=== PATIENT | male | born 1995 | race African-American/Black ===

== ENCOUNTER 2017-06-04 09:43 | Emergency (ER) | payer MEDICAID ==
[~2017-06-04] VITALS: Ht 188 cm; Wt 63.5 kg
--- NOTE | 2017-06-04 09:56 | Emergency Room Report ---
History of Present Illness General Chief Complaint: Upper Extremity Injury Source: Patient Present Illness HPI Patient is a 21-year-old male presented after increased pain to his left index finger. Patient injury proximal to 2 days ago. He had been noted to have increased pain to her left index finger. The patient is right-hand dominant. He reports having had index finger being injured while try to catch a football. He reports having the finger dislocated which was relocated by a family member. He denies other locations of pain. Allergies: Coded Allergies: No Known Allergies (Unverified , 06/04/17) Patient History Past Medical History: see triage record Reviewed Nursing Documentation: PMH: Agreed, PSxH: Agreed Nursing Documentation-PMH Past Medical History: No Stated History Review of Systems All Other Systems: negative except mentioned in HPI Physical Exam Vital Signs Date Time Temp Pulse Resp B/P Pulse Ox O2 Delivery O2 Flow Rate FiO2 06/04/17 09:46 98.4 59 18 120/80 99 Room Air General Appearance: well appearing, no apparent distress, alert, GCS 15 Head: normocephalic, atraumatic ENT: hearing grossly normal, normal voice Neck: full range of motion, supple Respiratory: no respiratory distress, speaking full sentences Cardiovascular #1: normal inspection Musculoskeletal: no calf tenderness, decreased range of mation, swelling Neurologic: normal inspection, alert, oriented x3, normal gait Psychiatric: mood/affect normal Skin: no rash Medical Decision Making Diagnostic Impression: Primary Impression: Fracture of proximal phalanx of digit of left hand ER Course Patient presented after hand injury. Differential diagnosis included was not limited to dislocation, fracture, sprain among others. X-ray imaging of the left hand was ordered of the patient's symptoms. Patient given ibuprofen for pain as well as ice. Xray imaging 3 view interpreted by me showed normal bony alignment without evident fracture. Patient was placed in an Aluminum Foam splint. Patient was advised followup with primary care physician approximately1-2 days for hand surgery referral. Other X-Ray Diagnostic Results Other X-Ray Diagnostic Results : # of Views/Limited Vs Complete: 3 View Indication: Pain EP Interpretation: Yes Interpretation: no dislocation, other - fracture of left index finger proximal phalanx Impression: Other Interpreting ER Provider: Electronically signed by Dr. Sergio Eid M.D. Last Vital Signs Date Time Temp Pulse Resp B/P Pulse Ox O2 Delivery O2 Flow Rate FiO2 06/04/17 09:46 98.4 59 18 120/80 99 Room Air Status: improved Disposition: HOME, SELF-CARE Condition: Stable Scripts Ibuprofen* (MOTRIN*) 600 Mg Tablet 600 MG ORAL Q8H Y for For Pain, #30 TAB 0 Refills Prov: Sergio Eid 06/04/17 Sergio Eid Jun 04, 2017 09:56
[2017-06-04] MEDS ORDERED: IBUPROFEN600 MG ORAL (09:57)
[2017-06-04] MEDS ORDERED: NORCO 5-325 TA1 EACH ORAL (10:19)
[2017-06-04 10:43] VITALS: BP_SYST 110; BP_SYST 121; BP_DIAS 78; BP_DIAS 80
--- NOTE | 2017-06-04 13:38 | Diagnostic Imaging Report ---
Indication: PAIN, hit by football Technique: Views of the left second finger Comparison: None Findings: There is an oblique fracture of the proximal phalanx. This is minimally displaced, possibly comminuted. It probably does not involve the joint space. There is minimal surrounding soft tissue swelling Impression: Positive for fracture of the second proximal phalanx
== END 2017-06-04 10:49 | disposition home or self-care (01) ==
LOC: EMR 10:15
DX: S62.611A Displaced fracture of proximal phalanx of left index finger, initial encounter for closed fracture (principal); X58.XXXA Exposure to other specified factors, initial encounter; Y92.89 Other specified places as the place of occurrence of the external cause; W22.8XXA Striking against or struck by other objects, initial encounter; Y93.61 Activity, american tackle football
CPT/HCPCS: 29130; 99283